=== PATIENT | female | born 1955 | race Caucasian/White ===

== ENCOUNTER 2022-01-05 16:24 | Inpatient (IN) | payer BC ==
[~2022-01-05] VITALS: Ht 154.9 cm; Wt 74.4 kg
[2022-01-05 16:42] VITALS: BP 132/82
--- NOTE | 2022-01-05 17:15 | NUR ---
Ultrasound at bedside.
--- NOTE | 2022-01-05 17:18 | NUR ---
66 y/o female bib refered here by urgent care to r/o Pulmonary Embolism. Patient has swelling to right calf. Patient has + pedal pulses to bilateral feet. Patient is noted to have +2 edema to bilateral lower extremities. Patient is noted to have more swelling to right calf then left calf. Patient has a history of clots in her legs. Patient noted increase swelling 3 days ago. Medical History: DM, HTN, HDL, Spine Surgery 2020 NKDA
--- NOTE | 2022-01-05 17:35 | NUR ---
Patient is noted to have oxygen levels in the low 90s. Patient was put on 2 LPM of oxygen via nasal cannula.
[2022-01-05] MEDS ORDERED: APIX5TAB PO (18:16)
[2022-01-05] MEDS ORDERED: APIX2.5 PO (18:16)
--- NOTE | 2022-01-05 18:38 | NUR ---
lab at bedside
[2022-01-05 18:47] LABS: BASOPHILS # (AUTO) 0.1 K/uL (0.00-0.22); EOSINOPHILS # (AUTO) 0.2 K/uL (0-0.4); EOSINOPHILS % (AUTO) 3.2 % (0.0-4.0); HEMATOCRIT 36.8 % (36-48); HEMOGLOBIN 12.6 g/dL (12.0-16.0); LYMPHOCYTES # (AUTO) 1.3 K/uL (2.5-16.5); LYMPHOCYTES % (AUTO) 18.9 % (20.5-51.1); MEAN CORPUSCULAR HEMOGLOBIN 32 pg (27-31); MEAN CORPUSCULAR HGB CONC 34 g/dL (33-37); MEAN CORPUSCULAR VOLUME 92.4 fL (80-94); MONOCYTES # (AUTO) 0.7 K/uL (0.8-1.0); MONOCYTES % (AUTO) 9.4 % (1.7-9.3); NEUTROPHILS # (AUTO) 4.7 K/uL (1.8-7.7); NEUTROPHILS % (AUTO) 67.5 % (42.2-75.2); PLATELET COUNT (AUTO) 184 K/uL (140-450); RED BLOOD CELL COUNT(AUTO) 3.98 MIL/uL (4.20-5.40); RED CELL DISTRIBUTION WIDTH 13.9 % (11.6-13.7)
[2022-01-05 19:01] LABS: ALBUMIN 3.3 g/dL (3.4-5.0); ANION GAP 13.4 (8-16); CARBON DIOXIDE 29.2 mmol/L (21-32); CREATININE 1.2 mg/dL (0.6-1.3); POTASSIUM 3.6 mmol/L (3.5-5.1); TOTAL BILIRUBIN 0.8 mg/dL (0.0-1.0)
--- NOTE | 2022-01-05 19:16 | NUR ---
Patient is taken to imaging via gurney
--- NOTE | 2022-01-05 19:22 | NUR ---
Pt report given to YUE Betancur. Transfer of care at this time.
--- NOTE | 2022-01-05 19:38 | NUR ---
pt back from ct
--- NOTE | 2022-01-05 21:17 | NUR ---
GAVE FAMILY MEMBER GINETTE DAUGHTER UPDATE ON PLAN OF CARE FAMILY MEMBER AWARE OF ADMISSION STATUS
--- NOTE | 2022-01-05 21:18 | NUR ---
COVID SWAB DONE. WALKED TO LAB BY DELROY COHEN.
[2022-01-05] MEDS ORDERED: ALTEPLASE 100 MG VIAL IV ONE (21:30)
[2022-01-05] MEDS ORDERED: ATOR10TA PO (21:31)
[2022-01-05] MEDS ORDERED: LOSA100T1 PO (21:31)
[2022-01-05] MEDS ORDERED: SITA25TA3 PO (21:31)
[2022-01-05] MEDS ORDERED: OMEP20EC11 PO (21:31)
[2022-01-05] MEDS ORDERED: guaiFENesin DM 200/20 MG-10 ML 10 ML UDC PO PRN (21:50)
[2022-01-05] MEDS ORDERED: ZOLPIDEM 5 MG TAB PO PRN (21:50)
[2022-01-05] MEDS ORDERED: DOCUSATE SODIUM 100 MG GELCAP PO PRN (21:50)
[2022-01-05] MEDS ORDERED: HEPARIN PER PHARMACY MC PRN (21:50)
[2022-01-05] MEDS ORDERED: DEXTROSE 50% 50 ML SYR IVP PRN (21:55)
--- NOTE | 2022-01-05 22:06 | NUR ---
Patient will be admitted. Admited to TELE. Will go to room 122A. Belongings list completed. Report to Laith benavides. Will hold patient until alteplase started. Addendum: 01/05/22 at 2342 by [email or web address] PT UPGRADED TO ICU.
[2022-01-05 22:10] LABS: PROTHROMBIN TIME 10.5 secs (10.8-13.4)
[2022-01-05 22:29] LABS: AMYLASE 49 U/L (25-115); CHOL/HDL RATIO 5.7 (1-4.5); FREE T4 (FREE THYROXINE) 1.23 ng/dL (0.76-1.46); HDL CHOLESTEROL 48 mg/dL (40-60); LDL (CALC) 161 mg/dL (60-100); LIPASE 120 U/L (73-393); MAGNESIUM 1.5 mg/dL (1.8-2.4); THYROID STIMULATING HORMONE 3.46 uIU/mL (0.34-3.74); TRIGLYCERIDES 329 mg/dL (30-150)
[2022-01-05] MEDS ORDERED: ALTEPLASE 100 MG IV ONE (22:36)
--- NOTE | 2022-01-05 23:08 | NUR ---
called supervising floorperson pharmacy to confirm reconstitution of alteplase and administration spoke to ewa ([phone])
--- NOTE | 2022-01-05 23:09 | NUR ---
pt started on alteplase. upgraded care to icu.
--- NOTE | 2022-01-05 23:58 | NUR ---
Patient will be admitted to care of CAMPOS TURNER. Admited to ICU. Will go to ICU BED 1. Belongings list completed. Report to CAMPOS SHANKAR NAD NOTED AT TIME OF TRANSFER. PT AND FAMILY AWARE OF ADMISSION.
[2022-01-06] VITALS (14 sets, daily range): BP systolic 107–158; BP diastolic 59–87
[2022-01-06] MEDS: NACL 0.9% 1,000 ML IV SCH ×3 (00:13→17:50)
--- NOTE | 2022-01-06 00:23 | NUR ---
CALLED [facility] [phone] SPOKE TO MARILEE REGARDING PROTOCOL FOR STARTING HEPARIN POST ALTEPLASE ADMINISTRATION. WILL RETURN CALL ONCE REPEAT PTT RESULTS AFTER ALTEPLASE ADMINISTRATION. ENGINEERING SPECIALIST TECHNICIAN PHARM[facility]IST WILL RETURN CALL FOR AJDUSTED BODY WEIGHT CALCULATIONS.
--- NOTE | 2022-01-06 01:00 | NUR ---
CALLED [facility] SPOKE TO MALOU READ BACK PTT VALUE AFTER ALTEPLASE ADMINISTRATION OK PROCEED WITH HEPARIN PROTOCOL PER FACILITY
[2022-01-06] MEDS: hePARIN / DEXT 5% PREMIX 250 ML IV SCH ×2 (01:13→07:00)
--- NOTE | 2022-01-06 01:15 | NUR ---
ALTEPLASE FINISHED. HEPARIN STARTED.
--- NOTE | 2022-01-06 01:25 | NUR ---
Patient transfer to ICU 1 via gurney with RN and EMT as ALS protocol.
--- NOTE | 2022-01-06 01:27 | NUR ---
ADMITTED PT. FROM ER AND REPORT GIVEN BY YUE WEINER. PT. WIDE AWAKE, ALERT, ORIENTED AND LITHUANIAN SPEAKING ONLY. ON NASAL CANULA 2L WITH O2 SAT 100%. ON HEPARIN DRIP, STARTED IN ER. IV SITE LEFT AC 20G, INFUSING HEPARIN DRIP AT 1000 U/HR AND RIGHT HAND 22G, RUNNING NS 100 ML/HR. PT. SINUS RHYTHM ON MONITOR. LUNG SOUNDS CLEAR BILATERALLY. EDEMA TO RIGHT LOWER EXTREMITY AND MD AWARE. ON A REGULAR DIET. CONTINENT AND ABLE TO MAKE NEEDS KNOWN. BEDLOCK AND PLACED BED IN THE LOWEST HEIGHT. NO S/S OF PAIN. WILL CONT. TO MONITOR.
--- NOTE | 2022-01-06 01:30 | NUR ---
PT. AT THE BEDSIDE.
--- NOTE | 2022-01-06 04:39 | NUR ---
TEXTED DR. PHILLIPS THAT PT. NOTED SPITTING FRESH RED BLOOD AND MG LEVEL 1.5. WILL WAIT FOR HIS RESPONSE.
--- NOTE | 2022-01-06 04:40 | NUR ---
TEXTED AT 0220, 2X TO REPORT PT. SPITTING FRESH RED BLOOD AND MG LEVEL 1.5 AND NO RESPONSE YET. WILL NOTIFY .
[2022-01-06 07:14] LABS: BASOPHILS % (AUTO) 0.9 % (0.0-2.0); EOSINOPHILS # (AUTO) 0.2 K/uL (0-0.4); EOSINOPHILS % (AUTO) 4.1 % (0.0-4.0); HEMATOCRIT 35.3 % (36-48); LYMPHOCYTES # (AUTO) 1.3 K/uL (2.5-16.5); LYMPHOCYTES % (AUTO) 23.6 % (20.5-51.1); MEAN CORPUSCULAR HEMOGLOBIN 31 pg (27-31); MEAN CORPUSCULAR HGB CONC 34 g/dL (33-37); MEAN CORPUSCULAR VOLUME 92.1 fL (80-94); MONOCYTES # (AUTO) 0.6 K/uL (0.8-1.0); MONOCYTES % (AUTO) 12.3 % (1.7-9.3); NEUTROPHILS # (AUTO) 3.1 K/uL (1.8-7.7); NEUTROPHILS % (AUTO) 59.1 % (42.2-75.2); PLATELET COUNT (AUTO) 175 K/uL (140-450); RED BLOOD CELL COUNT(AUTO) 3.83 MIL/uL (4.20-5.40); WHITE BLOOD COUNT (AUTO) 5.3 K/uL (4.8-10.8)
--- NOTE | 2022-01-06 07:20 | NUR ---
RECEIVED BEDSIDE REPORT FROM CAMPOS PIN PUSHER RN, FOR CONTINUITY OF CARE. PT AWAKE, ALERT, ORIENTED X4, PERUVIAN SPEAKING ONLY. NASAL CANULA 2L WITH O2 SAT 100%, NO S/S OF ACUTE RESPIRATORY DISTRESS. SINUS RHYTHM ON MONITOR, IV TO LEFT AC 20G, INFUSING HEPARIN DRIP AT 1000 U/HR AND RIGHT HAND 22G, RUNNING NS 100 ML/HR. LUNG SOUNDS CLEAR BILATERALLY. LOCALIZED EDEMA TO RIGHT LOWER EXTREMITY, MD AWARE. REGULAR DIET. BOWEL SOUNDS ACTIVE. CONTINENT AND ABLE TO MAKE NEEDS KNOWN. BED LOCKED AND IN LOWEST POSITION, CALL LIGHT WITHIN REACH.
[2022-01-06 07:30] LABS: CARBON DIOXIDE 27.3 mmol/L (21-32); CREATININE 0.9 mg/dL (0.6-1.3); POTASSIUM 3.3 mmol/L (3.5-5.1)
[2022-01-06] MEDS: BLOOD GLUCOSE MONITORING 1 DEV DEV FS SCH ×4 (07:34→21:00)
--- NOTE | 2022-01-06 08:15 | NUR ---
PT C/O NAUSEA, GAVE PRN ZOFRAN 4 MG. K+ LEVEL 3.3, GAVE PRN K DUR 40 MEQ.
[2022-01-06] MEDS: POTASSIUM CHLORIDE 10 MEQ TABER PO PRN (08:17)
[2022-01-06] MEDS: PANTOPRAZOLE 40 MG TABEC PO SCH (08:18)
[2022-01-06] MEDS: MAGNESIUM OXIDE 400 MG TAB PO SCH (08:18)
[2022-01-06] MEDS: LOSARTAN 50 MG TAB PO SCH (08:18)
--- NOTE | 2022-01-06 08:20 | NUR ---
SEEN AND EXAMINED BY DR. LAWRENCE, DISCUSSED PLAN OF CARE. ORDERS TO HOLD HEPARIN FOR NOW UNTIL SEEN BY PULMONOLOGY.
[2022-01-06] MEDS: ONDANSETRON 4 MG/2 ML VIAL IM/IVP PRN (08:30)
--- NOTE | 2022-01-06 09:29 | NUR ---
PATIENT HAS BEEN SCREENED AND CATEGORIZED MODERATE NUTRITION RISK. PATIENT WILL BE SEEN WITHIN 3-5 DAYS OF ADMISSION. 01/08/22-01/10/[address] CR PHILLIPS RD
--- NOTE | 2022-01-06 10:19 | NUR ---
DC PLANNING 66 YRS OLD FEMALE PATIENT WAS ADMITTED FROM HOME WITH A DX OF MULTIPLE BILATERAL PULMONARY EMBOLISM. PATIENT HAS A HX OF DM, HTN, HLD, DVT AND L3-L4 DISCECTOMY. US OF LOWER EXT SHOWED EXTENSIVE PARTIALLY OCCLUSIVE DVT IN RT LOWER EXT. CT CHEST SHOWED EXTENSIVE CENTRAL AND PERIPHERAL PULMONARY EMBOLI PROBABLE EMPHYSEMA AND SMALL HIATAL HERNIA. RAPID COVID TEST NEGATIVE. ON O2 2L/NC SATING 100%. ADMINISTERED IVF, ON HEPARIN DRIP AND CONTINUED HOME MEDS. CONSULTED WITH CARDIO AND PULMO. DC PLAN TO RETURN HOME WHEN STABLE CM TO FOLLOW Addendum: 01/06/22 at 1059 by Rabia Srivastava RN DC PLANNING: CM CALLED [employer] [phone] SPOKE WITH CRISTELA STATED SHE BELONG TO [facility] , UPDATED PT'S INPT ADMISSION AND CLINICALS. CRISTELA REQUEST ALL CLINICALS AND FACE SHEET TO BE FAXED TO [phone]. PER CRISTELA AFTER SHE REVIEW THE CLINICAL WILL CALL BACK. CM TO FOLLOW
--- NOTE | 2022-01-06 11:00 | NUR ---
DISCHARGE PLANNING PATIENT IS AN 66-YEAR-OLD FEMALE ADMITTED TO THE [facility]/ED ON 01/05/2022 DUE TO COMPLAINTS OF RIGHT LOWER EXTREMITY SWELLING FOR 3 DAYS. PATIENT HAS MEDICAL HISTORY OF HYPERTENSION, DIABETES, HYPERLIPIDEMIA. SW MEET WITH PATIENT AT BED SIDE TO DISCUSS AND GATHER PATIENTS COLLATERAL INFORMATION. PATIENT WAS AWAKE AND ALERT ABLE TO PROVIDE ALL HER INFORMATION. PER PATIENT SHE LIVES AT HOME WITH HER AND ADULT SON. PER PATIENT SHE HAS NO A.D AND WAS NOT INTERESTED ON INF. FORMS PROVIDED BY SW. PATIENT STATED THAT HER ARYAN SOTELO IS HER EMERGENCY CONTACT AND MEDICAL DECISION MAKER. PER PATIENT SHE HAS NO ISSUES GETTING OR TAKING HER MEDICATIONS, REPORTED BEEN CONSISTENT AND COMPLIANT AND GETTING THEM FROM THE [facility] IN [facility]. PATIENT ALSO REPORTED THAT SHE HAS NO DME AT HOME AND THAT SHE IS INDEPENDENT AND ABLE TO AMBULATE BY HER-SELF. PATIENT ALSO REPORTED THAT WHEN SHE IS READY FOR DISCHARGE SHE WILL BE ASSISTED BY HER WITH TRANSPORTATION BACK HOME. SW WILL FOLLOW UP NEEDED. HAS A WHEELCHAIR AND A WALKER HER ONLY DME IN THE FACILITY. PATIENT HAS NO ISSUES GETTING OR TAKING HER MEDICATIONS FROM THE FACILITY, SHE IS VERY COMPLIANT TAKING HER MEDICATION. PATIENT WILL BE RETURNING TO THE FACILITY AFTER SHE IS STABLE FOR DISCHARGE. SW WILL FOLLOW UP NEEDED.
--- NOTE | 2022-01-06 11:30 | NUR ---
ENDORSED REPORT TO MINA UTRNER FOR CONTINUITY OF CARE.
--- NOTE | 2022-01-06 11:45 | NUR ---
PT TRANSFERRED VIA WHEELCHAIR TO [facility] WITH ALL BELONGINGS AND CHART.
--- NOTE | 2022-01-06 11:46 | NUR ---
PT ARRIVED ONTO UNIT VIA WHEELCHAIR, ACCOMPANIED BY ICU NURSE. PT IS ALERT AND ORIENTED X4, ABLE TO VERBALIZE NEEDS, ABLE TO FOLLOW COMMANDS. PT IS PORTUGUESE SPEAKING ONLY. PT IS ON CARDIAC MONITORING, SR AT THIS TIME. PT IS ON 2L 02 VIA NC. NO SIGNS OF DISTRESS NOTED. NO COMPLAINTS OF SOB AT THIS TIME. PT ABD IS NONTENDER, NONDISTENDED WITH BOWEL SOUNDS PRESENT. PT STATES HER LAST B. WAS YESTERDAY 01/05/22. PT HAS FULL ROM TO UPPER AND LOWER EXTREMITIES, BILAT. PT IS CONTINENT OF BOWEL AND BLADDER. PT HAS RFA SKIN TEAR, PRESENT ON ADMISSION. PT HAS IV TO LAC 20G ALSO TO R HAND, 22G. ORIENTED PT TO ROOM, CALL LIGHT, HOSPITAL POLICIES, AND SAFETY PRECAUTIONS. CALL LIGHT WITHIN REACH. ALL SAFETY MEASURES IN PLACE. WILL CONTINUE TO MONITOR.
--- NOTE | 2022-01-06 12:30 | NUR ---
DR SCHMIDT AT BEDSIDE. PER DR SCHMIDT, START HEPARIN DRIP, KEEP PTT BETWEEN 60-70. ENDORSED ORDERS TO RN.
--- NOTE | 2022-01-06 14:36 | NUR ---
WENT TO DO ROUNDS ON PT. FAMILY AT BEDSIDE. PT RESTING AT THIS TIME. RESPIRATIONS ARE EVEN AND UNLABORED. NO SIGNS OF DISTRESS NOTED. WILL CONTINUE TO MONITOR.
--- NOTE | 2022-01-06 16:18 | NUR ---
PT BLOOD GLUCOSE 120. NO INSULIN COVERAGE NEEDED PER SLIDING SCALE.
[2022-01-06] MEDS: ACETAMINOPHEN 325 MG TAB PO PRN (16:23)
[2022-01-06 19:25] LABS: BASOPHILS # (AUTO) 0.1 K/uL (0.00-0.22); EOSINOPHILS # (AUTO) 0.2 K/uL (0-0.4); EOSINOPHILS % (AUTO) 3.7 % (0.0-4.0); HEMATOCRIT 31.4 % (36-48); HEMOGLOBIN 10.8 g/dL (12.0-16.0); LYMPHOCYTES # (AUTO) 1.1 K/uL (2.5-16.5); LYMPHOCYTES % (AUTO) 21.8 % (20.5-51.1); MEAN CORPUSCULAR HEMOGLOBIN 32 pg (27-31); MEAN CORPUSCULAR HGB CONC 34 g/dL (33-37); MEAN CORPUSCULAR VOLUME 92.3 fL (80-94); MONOCYTES # (AUTO) 0.6 K/uL (0.8-1.0); MONOCYTES % (AUTO) 12.5 % (1.7-9.3); NEUTROPHILS # (AUTO) 3.2 K/uL (1.8-7.7); PLATELET COUNT (AUTO) 181 K/uL (140-450); RED BLOOD CELL COUNT(AUTO) 3.41 MIL/uL (4.20-5.40); RED CELL DISTRIBUTION WIDTH 13.6 % (11.6-13.7); WHITE BLOOD COUNT (AUTO) 5.2 K/uL (4.8-10.8)
--- NOTE | 2022-01-06 19:35 | NUR ---
RECEIVED PT ENDORSEMENT FROM DAY SHIFT NURSE FOR CONTINUITY OF CARE. PT IS ON BED, AWAKE , ALERT AND VERBALLY RESPONSIVE. PT IS WITH O2 INHALATION AT 2 LPM. IV SITE SALINE LOCK AT LEFT AC 20G AND RIGHT HAND 22 INTACT AND PATENT. IV FLUID AND HEPARIN INFUSING WELL. CONTINUE TO MONITOR.
--- NOTE | 2022-01-06 19:35 | NUR ---
ENDORSED PT TO SECURITY ARCHITECT NURSE FOR CONTINUITY OF CARE. PT IS STABLE.
[2022-01-06] MEDS: ATORVASTATIN 20 MG TAB PO SCH (21:00)
--- NOTE | 2022-01-06 21:00 | NUR ---
BLOOD SUGAR CHECKED = 145, NO SLIDING SCALE COVERAGE.
--- NOTE | 2022-01-07 00:15 | NUR ---
PT ASLEEPS. NO SOB OR DISTRESS.
--- NOTE | 2022-01-07 03:30 | NUR ---
PT USES RESTROOM THEN BACK TO SLEEP.
[2022-01-07 03:49] VITALS: BP 107/59
[2022-01-07] MEDS: NACL 0.9% 1,000 ML IV SCH ×3 (03:50→23:50)
[2022-01-07 07:06] LABS: BASOPHILS % (AUTO) 0.9 % (0.0-2.0); EOSINOPHILS # (AUTO) 0.2 K/uL (0-0.4); EOSINOPHILS % (AUTO) 4.1 % (0.0-4.0); HEMATOCRIT 31.4 % (36-48); HEMOGLOBIN 10.6 g/dL (12.0-16.0); LYMPHOCYTES # (AUTO) 0.9 K/uL (2.5-16.5); LYMPHOCYTES % (AUTO) 20.2 % (20.5-51.1); MEAN CORPUSCULAR HEMOGLOBIN 32 pg (27-31); MEAN CORPUSCULAR HGB CONC 34 g/dL (33-37); MEAN CORPUSCULAR VOLUME 93.5 fL (80-94); MONOCYTES # (AUTO) 0.5 K/uL (0.8-1.0); MONOCYTES % (AUTO) 12.6 % (1.7-9.3); NEUTROPHILS # (AUTO) 2.6 K/uL (1.8-7.7); NEUTROPHILS % (AUTO) 62.2 % (42.2-75.2); PLATELET COUNT (AUTO) 178 K/uL (140-450); RED BLOOD CELL COUNT(AUTO) 3.35 MIL/uL (4.20-5.40); RED CELL DISTRIBUTION WIDTH 13.6 % (11.6-13.7); WHITE BLOOD COUNT (AUTO) 4.2 K/uL (4.8-10.8)
[2022-01-07 07:08] LABS: T4 (THYROXINE) 8.7 ug/dL (4.5-12.0)
--- NOTE | 2022-01-07 07:15 | NUR ---
RECEIVED REPORT FROM NIGHTSHIFT NURSE NIDIA FOR CONTINUITY OF CARE. PT IS IN STABLE CONDITION. A/OX4, SINGAPOREAN SPEAKING, BREATHING IS EVEN, REGULAR, AND UNLABORED ON 2L VIA NASAL CANNULA. PT IS CONTINENT OF THE BOWEL AND BLADDER . SKIN IS INTACT, WITH BRUISING ON RIGHT ANTECUBITAL, AND REDNESS ON THE RLE. HEPARIN DRIP CURRENTLY RUNNING AT 10ML/HR. PT DENIES PAIN AT THIS TIME.
[2022-01-07] MEDS: BLOOD GLUCOSE MONITORING 1 DEV DEV FS SCH ×4 (07:23→21:15)
[2022-01-07] MEDS: INSULIN LISPRO SLIDING SCALE 100 UNITS/ML VIAL SUBQ PRN ×3 (07:24→21:17)
[2022-01-07 07:27] LABS: ANION GAP 12.1 (8-16); CARBON DIOXIDE 26.4 mmol/L (21-32); CREATININE 0.6 mg/dL (0.6-1.3); POTASSIUM 3.5 mmol/L (3.5-5.1)
[2022-01-07 08:00] VITALS: BP 161/71
[2022-01-07] MEDS: PANTOPRAZOLE 40 MG TABEC PO SCH (08:34)
[2022-01-07] MEDS: LOSARTAN 50 MG TAB PO SCH (08:35)
[2022-01-07] MEDS: ACETAMINOPHEN 325 MG TAB PO PRN ×2 (08:35→23:47)
--- NOTE | 2022-01-07 08:35 | NUR ---
PT COMPLAINED OF HEADACHE PAIN 6/10, MEDICATED WITH PRN TYLENOL.
[2022-01-07] MEDS: MAGNESIUM OXIDE 400 MG TAB PO SCH (08:36)
--- NOTE | 2022-01-07 09:07 | NUR ---
CALLED PHARMACY REGARDING PT'S NEW PTT LEVEL OF 38.5. PER PHARMACY, 2300 UNIT BOLUS OF HEPARIN WELL INCREASE TITRATION OF HEPARIN DRIP BY 100 UNITS/HR FOR THE NEW RATE OF 1100 UNITS/HR OR 11ML/HR. VERIFIED AND WITNESSED BY BRIM PLATER JOWIE.
[2022-01-07] MEDS: hePARIN / DEXT 5% PREMIX 250 ML IV SCH (09:23)
--- NOTE | 2022-01-07 11:11 | NUR ---
PT VISUALLY ASSESSED. CURRENTLY SLEEPING, NO SIGNS OR PAIN OR DISTRESS NOTED AT THIS TIME.
[2022-01-07 12:00] VITALS: BP 114/61
--- NOTE | 2022-01-07 13:00 | NUR ---
PT VISUALLY ASSESSED. CURRENTLY SLEEPING, NO SIGNS OR PAIN OR DISTRESS NOTED AT THIS TIME.
--- NOTE | 2022-01-07 14:34 | NUR ---
LAB CALLED FOR NEW PTT LEVEL OF 63. PER PHARMACY PROTOCOL, NO CHANGES IN TITRATION OF HEPARIN DRIP.
[2022-01-07 16:00] VITALS: BP 120/61
--- NOTE | 2022-01-07 16:07 | NUR ---
PT VISUALLY ASSESSED, CURRENTLY SLEEPING. NO SIGNS OF PAIN OR DISTRESS NOTED.
[2022-01-07] MEDS: HYDROcodone/APAP 7.5/325 MG 1 TAB PO PRN (17:08)
--- NOTE | 2022-01-07 17:08 | NUR ---
PT COMPLAINED OF A HEADACHE 12/02. MEDICATED PRN NORCO.
--- NOTE | 2022-01-07 19:05 | NUR ---
RECEIVED REPORT FROM DAY SHIFT YUE SPENCER. PT IS AAOX4 CONGOLESE SPEAKER. PT IS ON NC 2L. PT HAS LEFT AC 20 GAUGE RUNNING HEPARIN DRIP 11ML/HR PER PHARMACY PROTOCOL. PT ALSO HAS RIGHT HAND 18 GAUGE RUNNING NS 100 CC/HR. PT NOT IN ANY DISTRESS. PT DENIES ANY PAIN AND HAS NO COMPLAINS. WILL CONTINUE TO MONITOR THE PT.
--- NOTE | 2022-01-07 19:18 | NUR ---
ENDORSED PT TO NIGHTSHIFT NURSE MAGALIS FOR CONTINUITY OF CARE. PT IN STABLE CONDITION.
--- NOTE | 2022-01-07 19:39 | NUR ---
LAB CALLED WITH PT NEW PTT 59.5. THIS IS THE SECOND THERAPEUTIC LEVEL. NO CHANGE IN RATE. NEXT PTT DRAW WILL BE 193401/08/22.
[2022-01-07 20:00] VITALS: BP 116/64
[2022-01-07] MEDS: ATORVASTATIN 20 MG TAB PO SCH (21:15)
--- NOTE | 2022-01-07 21:30 | NUR ---
SCHEDULE MEDS GIVEN. NO ADVERSE REACTION NOTED. WILL CONTINUE TO MONITOR THE PT.
--- NOTE | 2022-01-07 23:57 | NUR ---
PT COMPLAIN OF A HEART. TYLENOL WAS GIVEN. NO OTHER COMPLAINS. WILL CONTINUE TO MONITOR THE PT.
[2022-01-08] VITALS: BP 142/79
[2022-01-08] MEDS: NACL 0.9% 1,000 ML IV SCH ×2 (01:35→19:50)
--- NOTE | 2022-01-08 01:40 | NUR ---
PT IS SLEEPING COMFORTABLY IN BED. PT NOT IN ANY ACUTE DISTRESS. VISIBLE RISE AND CHEST FALL. CALL LIGHT WITHIN REACH. WILL CONTINUE TO MONITOR THE PT.
[2022-01-08 04:00] VITALS: BP 122/56
--- NOTE | 2022-01-08 04:05 | NUR ---
PT OBSERVED. PT IS SLEEPING COMFORTABLY IN BED. PT NOT IN ANY ACUTE DISTRESS. VISIBLE RISE AND CHEST FALL. HEPARIN DRIP RUNNING PER PHARMACY PROTOCOL. IVF RUNNING PER MD ORDER. CALL LIGHT WITHIN REACH. WILL CONTINUE TO MONITOR THE PT.
[2022-01-08 06:32] LABS: BASOPHILS % (AUTO) 0.8 % (0.0-2.0); EOSINOPHILS # (AUTO) 0.2 K/uL (0-0.4); EOSINOPHILS % (AUTO) 6.6 % (0.0-4.0); HEMATOCRIT 29.2 % (36-48); HEMOGLOBIN 10.3 g/dL (12.0-16.0); LYMPHOCYTES # (AUTO) 0.9 K/uL (2.5-16.5); LYMPHOCYTES % (AUTO) 27.5 % (20.5-51.1); MEAN CORPUSCULAR HEMOGLOBIN 32 pg (27-31); MEAN CORPUSCULAR HGB CONC 35 g/dL (33-37); MEAN CORPUSCULAR VOLUME 92.2 fL (80-94); MONOCYTES # (AUTO) 0.5 K/uL (0.8-1.0); MONOCYTES % (AUTO) 16.4 % (1.7-9.3); NEUTROPHILS # (AUTO) 1.6 K/uL (1.8-7.7); NEUTROPHILS % (AUTO) 48.7 % (42.2-75.2); PLATELET COUNT (AUTO) 187 K/uL (140-450); RED BLOOD CELL COUNT(AUTO) 3.17 MIL/uL (4.20-5.40); RED CELL DISTRIBUTION WIDTH 13.9 % (11.6-13.7); WHITE BLOOD COUNT (AUTO) 3.3 K/uL (4.8-10.8)
[2022-01-08 06:39] LABS: ANION GAP 10.7 (8-16); CREATININE 0.7 mg/dL (0.6-1.3); POTASSIUM 3.7 mmol/L (3.5-5.1)
[2022-01-08] MEDS: BLOOD GLUCOSE MONITORING 1 DEV DEV FS SCH ×4 (07:01→20:42)
--- NOTE | 2022-01-08 07:28 | NUR ---
ENDORSED PT TO DAY SHIFT RN FOR CONTINUITY OF CARE. PT IS STABLE.
[2022-01-08 08:00] VITALS: BP 134/96
[2022-01-08] MEDS: PANTOPRAZOLE 40 MG TABEC PO SCH ×3 (09:32→20:41)
[2022-01-08] MEDS: LOSARTAN 50 MG TAB PO SCH (09:32)
[2022-01-08] MEDS: MAGNESIUM OXIDE 400 MG TAB PO SCH (09:34)
[2022-01-08] MEDS: ONDANSETRON 4 MG/2 ML VIAL IM/IVP PRN ×2 (09:48→16:35)
[2022-01-08 12:00] VITALS: BP 125/57
[2022-01-08] MEDS: hePARIN / DEXT 5% PREMIX 250 ML IV SCH (12:27)
[2022-01-08] MEDS: HYDROcodone/APAP 7.5/325 MG 1 TAB PO PRN (12:45)
[2022-01-08 16:00] VITALS: BP 131/62
--- NOTE | 2022-01-08 16:35 | NUR ---
RT RECEIVED ORDERS TO ASSESS PT AT BEDSIDE, ARRIVED TO PT'S ROOM WITH FAMILY AT BEDSIDE AND NASAL CANNULA OFF. PT SEEN IN NO CURRENT RESPIRATORY DISTRESS AND IS SATING FROM 92%-96% FLUCTUATION WAS CONSTANT THROUGHOUT ASSESSMENT THOUGH STILL STABLE ABOVE 92%.
--- NOTE | 2022-01-08 19:14 | NUR ---
ENDORSE PATIENT TO PM SHIFT NURSE WITH PATIENT REST IN BED, PIV INFUSING HEPARIN AT 11ML/HR VIA R. HAND, NS INFUSING AT 100ML VIA LAC
--- NOTE | 2022-01-08 19:20 | NUR ---
RECEIVED REPORT FROM DAY SHIFT YUE MCFARLANE. PT IS AAOX4 LUXEMBOURGISH SPEAKER. PT IS ON NC 2L. PT HAS LEFT AC 20 GAUGE RUNNING HEPARIN DRIP 10ML/HR PER PHARMACY PROTOCOL. PT ALSO HAS RIGHT HAND 18 GAUGE RUNNING NS 100 CC/HR. PT NOT IN ANY DISTRESS. PT DENIES ANY PAIN AND HAS NO COMPLAINS. WILL CONTINUE TO MONITOR THE PT.
[2022-01-08 20:00] VITALS: BP 138/75
[2022-01-08] MEDS: ATORVASTATIN 20 MG TAB PO SCH (20:40)
[2022-01-09] VITALS: BP 153/96
[2022-01-09] MEDS: NACL 0.9% 1,000 ML IV SCH (01:00)
--- NOTE | 2022-01-09 01:30 | NUR ---
HAD TO CALL LAB SINCE THERE WAS NO RESULTS OF PTT. EXPLAIN TO LAB THAT THE PTT DRAW WAS SUPPOSE TO BE DRAWN AT 1935. I SAW THE LAB PERSON DRAW BLOOD FROM HER AND THE PT ALSO STATES THEY ADEEL BLOOD FROM HER DURING THAT TIME. LAB RESPONSE WITH THEY DO NOT SEE ANY ORDER AND ARE NOT AWARE OF THE SITUATION. THEY SAID TO PUT ANOTHER ORDER OF PTT DRAW.
--- NOTE | 2022-01-09 02:25 | NUR ---
LAB DID NOT CALL WITH NEW PTT RESULTS. CHECKED AND PTT IS 30.2. TITRATED PER PHARMACY PROTOCOL.
[2022-01-09 04:00] VITALS: BP 107/56
--- NOTE | 2022-01-09 04:12 | NUR ---
VITAL SIGNS TAKEN. VITAL SIGNS STABLE. PT HAS NO COMPLAINS AT THIS TIME. WILL CONTINUE TO MONITOR THE PT.
[2022-01-09] MEDS: BLOOD GLUCOSE MONITORING 1 DEV DEV FS SCH ×2 (06:32→11:35)
[2022-01-09 07:20] LABS: ANION GAP 10.8 (8-16); CARBON DIOXIDE 26.5 mmol/L (21-32); CREATININE 0.5 mg/dL (0.6-1.3); POTASSIUM 3.3 mmol/L (3.5-5.1)
--- NOTE | 2022-01-09 07:34 | NUR ---
ENDORSED PT TO DAY SHIFT RN FOR CONTINUITY OF CARE. PT IS STABLE.
[2022-01-09 07:35] LABS: BASOPHILS % (AUTO) 0.6 % (0.0-2.0); EOSINOPHILS # (AUTO) 0.2 K/uL (0-0.4); EOSINOPHILS % (AUTO) 4.9 % (0.0-4.0); HEMATOCRIT 28.7 % (36-48); HEMOGLOBIN 10.1 g/dL (12.0-16.0); LYMPHOCYTES # (AUTO) 0.6 K/uL (2.5-16.5); LYMPHOCYTES % (AUTO) 16.1 % (20.5-51.1); MEAN CORPUSCULAR HEMOGLOBIN 32 pg (27-31); MEAN CORPUSCULAR HGB CONC 35 g/dL (33-37); MEAN CORPUSCULAR VOLUME 91.4 fL (80-94); MONOCYTES # (AUTO) 0.4 K/uL (0.8-1.0); MONOCYTES % (AUTO) 11.6 % (1.7-9.3); NEUTROPHILS # (AUTO) 2.6 K/uL (1.8-7.7); NEUTROPHILS % (AUTO) 66.8 % (42.2-75.2); PLATELET COUNT (AUTO) 225 K/uL (140-450); RED BLOOD CELL COUNT(AUTO) 3.14 MIL/uL (4.20-5.40); RED CELL DISTRIBUTION WIDTH 13.2 % (11.6-13.7); WHITE BLOOD COUNT (AUTO) 3.9 K/uL (4.8-10.8)
[2022-01-09 08:00] VITALS: BP 134/81
[2022-01-09] MEDS: LOSARTAN 50 MG TAB PO SCH (08:17)
[2022-01-09] MEDS: PANTOPRAZOLE 40 MG TABEC PO SCH (08:18)
[2022-01-09] MEDS: POTASSIUM CHLORIDE 10 MEQ TABER PO PRN (08:18)
[2022-01-09] MEDS: MAGNESIUM OXIDE 400 MG TAB PO SCH (08:19)
[2022-01-09] MEDS ORDERED: CRUSHER, PILL MC ONE (08:23)
[2022-01-09] MEDS: ONDANSETRON 4 MG/2 ML VIAL IM/IVP PRN (08:32)
--- NOTE | 2022-01-09 09:15 | NUR ---
ALL SCHEDULED MEDS GIVEN. PT IS STABLE. NO DISTRESS NOTED. WILL CONTINUE TO MONITOR.
[2022-01-09] MEDS ORDERED: APIXABAN 2.5 MG TAB PO SCH (10:15)
[2022-01-09 12:00] VITALS: BP 143/73
[2022-01-09] MEDS ORDERED: APIX2.5 PO (12:31)
--- NOTE | 2022-01-09 12:53 | NUR ---
01/09/22 RD INITIAL ASSESSMENT COMPLETED PLEASE REFER TO NUTRITION ASSESSMENT UNDER CARE ACTIVITY FOR ESTIMATED NUTRITIONAL NEEDS. 1. RECOMMEND CCHO 60GM DIET TOLERATED 2. RECOMMEND GLUCERNA BID FOR NUTRITION SUPPORT 3. PROVIDED DIABETES NUTRITION EDUCATION HANDOUTS 4. MONITOR GI SYMPTOMS AND PO INTAKE 5. RD TO FOLLOW-UP 3-5 DAYS, MODERATE RISK CR PHILLIPS RD
[2022-01-09 13:12] VITALS: BP 143/73
--- NOTE | 2022-01-09 13:36 | NUR ---
ENDORSED DISCHARGE INSTRUCTIONS TO PATIENT. PT VERBALIZED UNDERSTANDING AND SIGNED DISCHARGE FORMS. IV ACCESS REMOVED.
--- NOTE | 2022-01-09 14:00 | NUR ---
PATIENT DISCHARGED OFF THE UNIT. ESCORTED TO THE FRONT LOBBY. PT WAS STABLE PRIOR TO DISCHARGE.
== END 2022-01-09 14:06 | disposition home or self-care (01) | DRG 175 ==
LOC: MED 16:24 → MTU 21:44 → MED 21:44 → MIC 23:13 → MTU 01-06 11:43
PROVIDERS: ADMIT Family Medicine; ATTEND Family Medicine
DX: I26.99 Other pulmonary embolism without acute cor pulmonale (principal); J96.01 Acute respiratory failure with hypoxia; R04.2 Hemoptysis; I82.411 Acute embolism and thrombosis of right femoral vein; I10 Essential (primary) hypertension; E11.9 Type 2 diabetes mellitus without complications; E11.65 Type 2 diabetes mellitus with hyperglycemia; E87.6 Hypokalemia; E83.42 Hypomagnesemia; D72.818 Other decreased white blood cell count; D72.810 Lymphocytopenia; I51.9 Heart disease, unspecified; J43.9 Emphysema, unspecified; D64.9 Anemia, unspecified; Z20.822 Contact with and (suspected) exposure to COVID-19
CPT/HCPCS: 36415; 71275; 80048; 80053; 82150; 82948; 83036; 83690; 83735; 83880; 84100; 84436; 84439; 84443; 84479; 84484; 85025; 85610; 85730; 87081; 93005; 93925; 93971; 96365; 96366; 96375; 99291; J1644; J2405; J2997; Q0092; Q9967